=== PATIENT | female | born 1960 | race Caucasian/White ===

== ENCOUNTER 2018-08-02 06:26 | Day surgery (SDC) | END 2018-08-02 13:26 | disposition home or self-care (01) ==

== ENCOUNTER 2019-02-04 06:07 | Day surgery (SDC) | payer OTHER ==
[~2019-02-04] VITALS: Ht 157.5 cm; Wt 71.9 kg
[2019-02-04] VITALS (12 sets, daily range): BP systolic 95–149; BP diastolic 58–88; PULSE 65–92; RESP 12–24; Ht 157.5 cm; Wt 71.9 kg
[~2019-02-04 06:07] MED LIST: ADV25050 INHALATION; ATOR20TA38 PO; CEFAZOLIN 2 GM/50 ML (PMX) 50 ML IVPB SCH
[2019-02-04] MEDS ORDERED: LIDOCAINE 2% (SDV) 5 ML INJ ONE (06:50)
[2019-02-04] MEDS ORDERED: MIDAZOLAM 1 MG/ML 2 ML INJ ONE (06:50)
[2019-02-04] MEDS ORDERED: FENTAnyl 50 MCG/ML VIAL ONE (06:50)
[2019-02-04] MEDS ORDERED: PROPOFOL 20 ML ONE (06:50)
[2019-02-04] MEDS ORDERED: CEFAZOLIN 1 GM INJ ONE (06:50)
[2019-02-04] MEDS ORDERED: BACITRACIN/POLYMYXIN 28.35 GM OINT TOP ONE (07:00)
[2019-02-04] MEDS ORDERED: DESFLURANE 15 MIN ONE (07:00)
[2019-02-04] MEDS ORDERED: POLYMYXIN/BACITRACIN 1L IRRIG ONE (07:00)
[2019-02-04] MEDS ORDERED: BUPIVACAINE 0.5% (SDV) 30 ML INJ ONE (07:00)
--- NOTE | 2019-02-04 07:03 | PREAC ---
Date/Time of Note Date/Time of Note DATE: 02/04/19 TIME: 07:01 Anesthesia Eval and Record Evaluation Time Pre-Procedure Interview DATE: 02/04/19 TIME: 07:01 Age 58 Sex female NPO: 8 hrs Preoperative diagnosis right 4th and 5th hammertoe Planned procedure hammertoe correction RIGHT 4th and 5th TOE Past Medical History Past Medical History: Includes Cardio: Dyslipidemia (pt states she currently does NOT take her statin) Pulm: Asthma (well-controlled, symptoms triggered by URI) Surgery & Anesthesia Issues No known issue Meds Anticoagulation: No Beta Mone within 24 hr: No Reason Beta Mone not given: Pt. not on B-Mone Reported Medications Salmeterol Xinaf/Fluticasone* (Advair*) 250-50 Diskus Inhaler, 1 INH INHALATION BID, #1 INHALER 08/02/18 Atorvastatin Calcium* (Atorvastatin Calcium*) 20 Mg Tablet, 20 MG PO QHS, #30 TAB 08/02/18 Current Medications Cefazolin Sodium/ Dextrose 50 ml @ 100 mls/hr ONCE IVPB ; Start 02/04/19 at 04:00; Stop 02/04/19 at 16:00 Meds reviewed: Yes Allergies Coded Allergies: No Known Allergy (Verified , 08/02/18) Allergies Reviewed: Yes Labs/Studies Labs Reviewed: Reviewed by anesthesiologist test: N/A Studies: ECG, CXR Pre-procedure Exam Last vitals Vital Signs Date Temp Pulse Resp B/P (MAP) Pulse Ox O2 O2 Flow FiO2 Time Delivery Rate 02/04/19 96.7 65 18 144/64 97 Room Air 06:52 (90) Airway: Adequate mouth opening, Adequate thyromental dist Mallampati: Mallampati II Teeth: Normal Lung: Normal Heart: Normal ASA Physical Status ASA physical status: 2 Emergency: None Planned Anesthetic General/MAC: LMA Planned Pain Management Parenteral pain med, Local by surgeon Pre-operative Attestations Prior to commencing anesthesia and surgery, the patient was re-evaluated, there was verification of: *The patient's identity *The results of appropriate recent lab work and preoperative vital signs *The above evaluation not changing prior to induction *Anesthetic plan, risk benefits, alternative and complications discussed with patient/family; questions answered; patient/family understands, accepts and wishes to proceed. SONIA LOPEZ Feb 04, 2019 07:03
--- NOTE | 2019-02-04 07:19 | HPN ---
Date/Time of Note Date/Time of Note DATE: 02/04/19 TIME: 07:19 Interval H&P Admission Note Pt. seen H&P reviewed: No system changes NICOLASA WATSON DPM Feb 04, 2019 07:19
[2019-02-04] MEDS ORDERED: ONDANSETRON 4 MG INJ ONE (07:39)
[2019-02-04] MEDS ORDERED: DEXAMETHASONE 4 MG/ML 5 ML INJ ONE (07:40)
[2019-02-04] MEDS ORDERED: METOCLOPRAMIDE 10 MG INJ ONE (07:40)
[2019-02-04] MEDS ORDERED: FAMOTIDINE 20 MG INJ ONE (07:40)
[2019-02-04] MEDS ORDERED: EPHEDrine 25 MG/5 ML SYG ONE (08:03)
[2019-02-04] MEDS ORDERED: KETOROLAC 30 MG INJ ONE (08:22)
[2019-02-04] MEDS ORDERED: ALBUTEROL 0.083% (NEB) 2.5 MG/3 ML AMP HHN PRN (08:30)
[2019-02-04] MEDS ORDERED: MEPERIDINE 25 MG INJ IV PRN (08:30)
[2019-02-04] MEDS ORDERED: HYDROmorphONE 1 MG/5 ML IV SYRINGE IV PRN ×3 (08:30)
[2019-02-04] MEDS ORDERED: OXYCODONE/ACETAMINOPHEN (5/325) TAB PO PRN ×2 (08:30)
[2019-02-04] MEDS ORDERED: ONDANSETRON 4 MG INJ IV PRN (08:30)
--- NOTE | 2019-02-04 08:38 | OPR ---
Date/Time of Note Date/Time of Note DATE: 02/04/19 TIME: 08:33 Operative Report Procedure Date: Feb 04, 2019 Preoperative Diagnosis Severe right fifth hammertoe deformity Severe right fourth hammertoe deformity Right fifth toe pain Right fourth toe pain Postoperative Diagnosis Severe right fifth hammertoe deformity Severe right fourth hammertoe deformity Right fifth toe pain Right fourth toe pain Operation/Procedure Performed Surgical correction right fifth hammertoe deformity with K wire fixation Surgical correction right fourth hammertoe deformity with K wire fixation Surgeon see signature line Immigration Inspector None Anesthesia Type: general Estimated Blood Loss: minimal Transfusion none Specimen Bone from the right fourth and fifth toes Grafts/Implants none Complications none Pt Condition Post Procedure: stable Disposition: PACU Indications This is a pleasant 58-year-old female patient who has been suffering with pain in the right fourth and fifth toes for years getting worse for the past year. Patient was evaluated and was found to have severe hammertoes of the right foot fourth and fifth toes. Patient has failed the following treatments: Change in shoe gear, change in activities, NSAIDs, pain medication, [id number] inserts etc. Patient seeks surgical management. Recommended procedure: Surgical correction of right fourth and fifth hammertoe deformity. Risks and complications of this type of surgery was discussed with patient in great detail. Risks and complications discussed included, but are not limited to, postoperative infection, postoperative pain, hardware failure, malunion, nonunion, delayed union, failure of surgery to correct the problem, need for additional surgical procedures, deep venous thrombosis, limb loss and loss of life. Patient understands the discussion and agrees to the procedure. An informed consent was signed, obtained and placed in the chart. No guarantees or warrantees was given or implied as to the outcome of the procedure either in verbal or written form. Procedure Description The patient was seen in the preoperative unit. The proposed surgery was discussed with patient in great detail. Risks and complications of this type of surgery was discussed with patient in great detail. Opportunity was given to patient to ask questions and all questions were answered. The patient acknowledges understanding of the discussion. An informed consent was then obtained, signed and placed in the chart. Patient was taken to the operating room and was placed on the operating table in the supine position. All bony prominences were padded properly. A timeout was called by the circulating nurse. Everyone in the operating room was agreeable to the timeout. The patient was then placed under general anesthesia by the anesthesiologist. [A pneumatic ankle tourniquet was applied to the right ankle]. The right lower extremity was scrubbed,l prepped, and draped in the usual aseptic manner. An Esmarch bandage was utilized to exsanguinate the right lower extremity and the tourniquet was inflated to 250 mmHg pressure. Procedure #1: Surgical correction of right fifth hammertoe deformity Attention was directed to the right fifth toe. Two semielliptical incisions were made over the dorsal lateral aspect of the fifth toe using a #15 blade. Bleeders were cauterized as necessary. Dissection was deepened through subcutaneous tissue to the dorsal aspect of the extensor tendon. Bleeders were cauterized as necessary. The tendon was transected at the level of the proximal interphalangeal joint and the joint was sharply dissected and exposed. A power saw was used to cut the head of the proximal phalanx and the base of the middle phalanx. The bone was removed and passed the back table. Copious amounts of sterile normal saline was used for irrigation. Next, a 0.062 K wire was inserted retrograde for fixation. The tendon was then reapproximated using 4-0 Vicryl suture along with the subcutaneous layer closed with simple suture technique. The skin was closed using 5-0 Monocryl in simple suture technique. The K wire was bent, cut and capped. Procedure #2: Surgical correction of right fourth hammertoe deformity Same exact procedure was done on the fourth toe on the right foot except for the incision which was just a single incision over the dorsal aspect. The patient tolerated procedure and anesthesia well. The patient was transferred to the recovery room with vital signs stable and vascular status intact to right lower extremity. The patient will be discharged home after postoperative monitoring. Postoperative orders were written. Patient will be followed up in the office in 1 week. NICOLASA WATSON DPM Feb 04, 2019 08:38
--- NOTE | 2019-02-04 09:02 | PAC ---
Date/Time of Note Date/Time of Note DATE: 02/04/19 TIME: 09:00 Post-Anesthesia Notes Post-Anesthesia Note Last documented vital signs bp 127/62 hr 95 rr 16 temp 98.2 spo2 96% Vital Signs Date Temp Pulse Resp B/P (MAP) Pulse Ox O2 O2 Flow FiO2 Time Delivery Rate 02/04/19 98.0 08:26 02/04/19 65 18 144/64 97 Room Air 06:52 (90) Activity: WNL Respiratory function: WNL Cardiovascular function: WNL Mental status: Baseline Pain reasonably controlled: Yes Hydration appropriate: Yes Nausea/Vomiting absent: Yes SONIA LOPEZ Feb 04, 2019 09:02
== END 2019-02-04 10:48 | disposition home or self-care (01) ==
LOC: SDS 06:07
PROVIDERS: ATTEND Podiatrist Foot & Ankle Surgery
DX: M20.41 Other hammer toe(s) (acquired), right foot (principal); J45.909 Unspecified asthma, uncomplicated; K21.9 Gastro-esophageal reflux disease without esophagitis; E78.5 Hyperlipidemia, unspecified
CPT/HCPCS: 28285; 71045; 73620; 88304; 88311; C1713; J0690; J1100; J1885; J2175; J2250; J2405; J2765; J3010; L3260; Z7512; Z7610